=== PATIENT | female | born 1960 | race Caucasian/White ===

== ENCOUNTER 2019-03-10 09:15 | Outpatient (CLI) | payer SELFPAY ==
--- NOTE | 2019-03-10 09:53 | MERGE_ITS ---
*[facility]* *[facility]* [address] [place] [address] Date of study: 03/10/2019 Transthoracic Echocardiography M-mode, complete 2D, complete spectral Doppler, and color Doppler *STUDY CONCLUSIONS* Summary: 1. Left ventricle: The cavity size was normal. Systolic function was normal. The estimated ejection fraction was 60-65%. Diastolic parameters were normal. There was no evidence of elevated ventricular filling pressure by Doppler parameters. 2. Aortic valve: There was mild to moderate regurgitation. Peak velocity (S): 1.9m/sec. Mean gradient (S): 7.2mm Hg. VTI ratio of LVOT to aortic valve: 0.69. 3. Mitral valve: There was mild regurgitation. 4. Right ventricle: The cavity size was normal. Wall thickness was normal. Systolic function was normal. 5. Atrial septum: No defect or patent foramen ovale was identified. 6. Pulmonary arteries: Pulmonary systolic pressure was in the range of 15mm Hg to 25mm Hg. 7. Inferior vena cava: The vessel was normal in size. The respirophasic diameter changes were in the normal range (greater than or equal to 50%), consistent with normal central venous pressure. *PATIENT PRESENTATION* Height: 154.9cm (61in ) S/D Pressure: 138 / 81 Weight: 48.5kg (106.8lb ) BSA: 1.45m^2 Test start time: 09:50 AM. Test stop time: 10:30 AM. PERFORMING Unknown PERFORMING [facility] ELECTRONICS TESTER Jenni Bass CONSULTING Do Raines Do REFERRING Do Raines *PROCEDURE DATA* Procedure information: This study was interpreted by [facility]. Pertinent images and digital data are archived for permanent storage and are available for subsequent review. No prior study was available for comparison. Study status: Routine. Transthoracic echocardiography. M-mode, complete 2D, complete spectral Doppler, and color Doppler. A Transthoracic Echocardiogram was performed. Scanning was performed from the parasternal, apical, subcostal, and suprasternal notch acoustic windows. Images were obtained using an [employer] [id number] cardiac ultrasound machine. Image quality was good. Study completion: The patient tolerated the procedure well. History: PMH: Chest Pain. *CARDIAC ANATOMY* Left ventricle: The cavity size was normal. Systolic function was normal. The estimated ejection fraction was 60-65%. Diastolic parameters were normal. There was no evidence of elevated ventricular filling pressure by Doppler parameters. Aortic valve: Trileaflet. Doppler: There was no stenosis. There was mild to moderate regurgitation. VTI ratio of LVOT to aortic valve: 0.69. Valve area (VTI): 1.6cm^2. Indexed valve area (VTI): 1.1cm^2/m^2. Peak velocity ratio of LVOT to aortic valve: 0.59. Valve area (Vmax): 1.4cm^2. Indexed valve area (Vmax): 1cm^2/m^2. Mean velocity ratio of LVOT to aortic valve: 0.51. Valve area (Vmean): 1.2cm^2. Indexed valve area (Vmean): 0.8cm^2/m^2. Mean gradient (S): 7.2mm Hg. Peak gradient (S): 14.5mm Hg. Aorta: Aortic root: The aortic root was normal in size. Ascending aorta: The ascending aorta was normal in size. Mitral valve: Doppler: There was no evidence for stenosis. There was mild regurgitation. Valve area by pressure half-time: 4cm^2. Indexed valve area by pressure half-time: 2.8cm^2/m^2. Peak gradient (D): 2.2mm Hg. Left atrium: The atrium was normal in size. Atrial septum: No defect or patent foramen ovale was identified. Right ventricle: The cavity size was normal. Wall thickness was normal. Systolic function was normal. Pulmonic valve: Doppler: There was no evidence for stenosis. There was no significant regurgitation. Peak gradient (S): 3.6mm Hg. Tricuspid valve: Doppler: There was mild regurgitation. Pulmonary artery: Poorly visualized. Pulmonary systolic pressure was in the range of 15mm Hg to 25mm Hg. Right atrium: The atrium was normal in size. Pericardium: There was no pericardial effusion. Systemic veins: Inferior vena cava: The vessel was normal in size. The respirophasic diameter changes were in the normal range (greater than or equal to 50%), consistent with normal central venous pressure. Measurements Left ventricle Value Reference LV ID, ED, PLAX 4.3 cm 3.5 - 6.0 LV ID, ES, PLAX 2.9 cm 2.1 - 4.0 LV PW thickness, ED, PLAX 1.0 cm LV end-diastolic volume, 1-p A2C 83 ml LV ejection fraction, 1-p A2C 58 % LV end-diastolic volume, 1-p A4C 77 ml LV ejection fraction, 1-p A4C 58 % LV e', lateral 0.104 m/sec LV E/e', lateral 7 LV e', medial 0.064 m/sec LV E/e', medial 11 LV e', average 0.084 m/sec LV E/e', average 9 Ventricular septum Value Reference IVS thickness, ED, PLAX 1.0 cm LVOT Value Reference LVOT ID, A-P 1.7 cm LVOT area 2.4 cm^2 LVOT peak velocity, S 1.13 m/sec LVOT mean velocity, S 0.65 m/sec LVOT VTI, S 25.5 cm LVOT peak gradient, S 5.1 mm Hg LVOT mean gradient, S 2.1 mm Hg Stroke volume (SV), LVOT DP 60 ml Stroke index (SV/bsa), LVOT DP 42 ml/m^2 Aortic valve Value Reference Aortic valve peak velocity, S 1.9 m/sec Aortic valve mean velocity, S 1.3 m/sec Aortic valve VTI, S 37.0 cm Aortic mean gradient, S 7.2 mm Hg Aortic peak gradient, S 14.5 mm Hg VTI ratio, LVOT/AV 0.69 Aortic valve area, VTI 1.6 cm^2 Velocity ratio, peak, LVOT/AV 0.59 Aortic valve area, peak velocity 1.4 cm^2 Velocity ratio, mean, LVOT/AV 0.51 Aortic valve area, mean velocity 1.2 cm^2 Aortic valve area/bsa, mean velocity 0.8 cm^2/m^2 Aortic regurg deceleration 141 cm/s^2 Aortic regurg pressure half-time 828 ms Aorta Value Reference Aortic root ID, ED 2.5 cm Ascending aorta ID, A-P, S 3.1 cm Left atrium Value Reference LA ID, A-P, ES 3.2 cm LA ID/bsa, A-P 2.2 cm/m^2 <=2.2 LA volume, ES, 2-p 35 ml LA volume/bsa, ES, 2-p 25 ml/m^2 LA/aortic root ratio 1.26 Mitral valve Value Reference Mitral E-wave peak velocity 0.74 m/sec Mitral A-wave peak velocity 0.65 m/sec Mitral deceleration time 191 ms 150 - 230 Mitral pressure half-time 55 ms Mitral peak gradient, D 2.2 mm Hg Mitral E/A ratio, peak 1.14 Mitral valve area, PHT, DP 4 cm^2 Tricuspid valve Value Reference Tricuspid regurg peak velocity 2.2 m/sec Tricuspid peak RV-RA gradient 19.4 mm Hg Right atrium Value Reference RA area, ES, A4C 10.8 cm^2 8.3 - 19.5 Pulmonic valve Value Reference Pulmonic peak gradient, S 3.6 mm Hg Legend: (L) and (H) laura values outside specified reference range. I have personally reviewed the images and have reviewed and edited the reported findings. Electronically signed by Wild Ziegler MD 03/10/2019 12:27
== END 2019-03-10 09:35 ==
PROVIDERS: PCP Physician Assistant; Visit Provider Physician Assistant
DX: R07.9 Chest pain, unspecified (principal); I35.1 Nonrheumatic aortic (valve) insufficiency; I34.0 Nonrheumatic mitral (valve) insufficiency
CPT/HCPCS: 93306

== ENCOUNTER 2019-03-12 00:47 | Outpatient (CLI) | payer SELFPAY ==
--- NOTE | 2019-03-12 10:30 | ETT_ITS ---
*[facility]* *[facility]* [address] [place] [address] Stress Electrocardiography Bill protocol Date of study: 03/12/2019 *PATIENT PRESENTATION* Height: 154.9cm (61in) Blood Pressure: Weight: 48.2kg (106lb) BSA: 1.44m^2 Ordering physician: Do Raines Impressions: Normal study after maximal exercise. Summary: 1. Stress ECG conclusions: The stress ECG is negative. Goode treadmill score: 9. This score predicts a low risk of cardiac events. Indication: R07.9. History: REASON FOR TESTING: CHEST PRESSURE AND SIGNIFICANTLY ELEVATED BLOOD PRESSURE. [facility] ON 03/03/19. NO RECORDS CURRENTLY AVAILABLE. PMH: AUTOIMMUNE DIABETES IN REMISSION. FAMILY HX: FATHER [place] IN 50'S WITH CABG, HYPERTENSION, HYPERLIPIDEMIA. SMOKING: NEVER SMOKER. EXCERCISE: NO REGULAR EXCERCISE. Risk factors: Family history of coronary artery disease. ALLERGIES: SULFA, PENICILLIN, NSAIDS, ASPIRIN, FLEXARIL. MEDICATIONS: AMLODIPINE 10 MG DAILY, METOPROLOL ER SUCCINATE 25 MG DAILY. Protocol: Bill protocol. Baseline ECG: NO EKG AVAILABLE FOR COMPARISON. TODAY'S EKG-SINUS BRQADYCARDIA, HR 52. Stress protocol: + +---+ + !Stage !HR !BP (mmHg) ! + +---+ + !Baseline supine !52 !148/82 (104)! + +---+ + !Baseline standing !56 !150/78 (102)! + +---+ + !Stage I; 1.7mph, 10degrees; 3 min !83 !158/76 (103)! + +---+ + !Stage II; 2.5mph, 12degrees; 3 min !100!154/82 (106)! + +---+ + !Stage III; 3.4mph, 14degrees; 3 min!105!164/84 (111)! + +---+ + !Recovery; 1 min !75 !152/78 (103)! + +---+ + !Recovery; 3 min !70 !158/80 (106)! + +---+ + !Recovery; 6 min !64 !138/78 (98) ! + +---+ + * Stress results: The rate-pressure product for the peak heart rate and blood pressure was 44359mi Hg/min. Stress ECG: PATIENT UNABLE TO REACH TARGET HR. EXCERCISE TESTING ENDED IN 9 MINS, 10 SECS, DUE TODIZZINESS AND LEG PAIN. MAX HR WAS 118, 73% OF TARGET. NORMAL BLOOD PRESSURE RESPONSE. METS: 10.39 ECTOPY: NONE NOTED. ANGINA: NO REPORTED CHEST PAIN OR PRESSURE. ISCHEMIA: NO ISCHEMIC CHANGES NOTED. FUNCTIONAL CAPACITY: ABOVE AVERAGE CAPACITY. The stress ECG is negative. Goode treadmill score: 9. This score predicts a low risk of cardiac events. Study data: Wild Ziegler MD supervised and was readily available during the procedure. This study was interpreted by [facility]. Study status: Routine. Consent: The risks, benefits, and alternatives to the procedure were explained to the patient and informed consent was obtained. Procedure: Initial setup. A baseline ECG was recorded. Surface ECG leads and manual cuff blood pressure measurements were monitored. Heart sounds: Normal. Lung sounds: Normal. Treadmill exercise testing was performed using the Bill protocol. Study completion: The patient tolerated the procedure well and was discharged from the lab. Discharge: The patient left the laboratory in stable condition. Birthdate: Patient birthdate: 1960. Sex: Gender: female. Study date: Study date: 03/12/2019. Study time: 00:01 AM. Electronically signed by Wild Ziegler MD 03/12/2019 17:36
== END 2019-03-12 01:07 ==
PROVIDERS: PCP Physician Assistant; Visit Provider Physician Assistant
DX: R07.9 Chest pain, unspecified (principal); I10 Essential (primary) hypertension; Z82.49 Family history of ischemic heart disease and other diseases of the circulatory system
CPT/HCPCS: 93017